=== PATIENT | male | born 1950 | race Caucasian/White ===

== ENCOUNTER → 2017-08-11 | Outpatient (CLI) | payer MEDICARE ==
[~2017-08-11] MED LIST: ACET-1757 PO; ACET650S12 PR; ALLO100T30 PO; AMIO200T42 PO; AMIO400T5 PO; AMLO5TAB2 PO; ASPI-515 PO; ASPI325T17 PO; BISA-49 PO; BISA10SU54 PR; CARV3.122 PO; CARV6.2512 PO; DEXT4TAB PO; DEXT50DI3 IVPush; DOCU-131 PO; ENOX40SY4 SQ; ESZO3TAB28 PO; FURO-92 PO; FURO-93 IV; FURO-93 PO; GLUC1VIA IVPush; HYDR-3307 PO; HYDR12.58 PO; LISI-170 PO; LISI40TA PO; LORA10TA3 PO; MELA1TAB22 PO; MELA1TAB9 PO; OMEP-110 PO; OXYC-302 PO; PANT40TA3 PO; POTA20TA91 PO; PROC5TAB40 PO; RIVA20TA PO; SIMV40TA PO; TRAM50TA2 PO; VALE450C PO; statin PO
== END | disposition home or self-care (01) ==
LOC: CFH 15:46
PROVIDERS: ATTEND Nurse Practitioner Family
DX: M19.071 Primary osteoarthritis, right ankle and foot (principal)

== ENCOUNTER 2017-10-11 14:00 | Emergency (ER) | payer MEDICARE ==
[~2017-10-11] VITALS: Ht 177.8 cm; Wt 82.0 kg
[2017-10-11 15:13] VITALS: BP 127/64
[2017-10-11 15:23] LABS: BASOPHILS # (AUTO) 0.03 x10^3/uL (0-0.1); BASOPHILS % (AUTO) 0 % (0-1); EOSINOPHILS % (AUTO) 1 % (1-7); LYMPHOCYTES # (AUTO) 1.07 x10^3/uL (1-3.4); LYMPHOCYTES % (AUTO) 15 % (22-44); MD NO; MEAN CORPUSCULAR HEMOGLOBIN 30.1 pg (27.5-34.5); MEAN CORPUSCULAR HGB CONC 33.4 g/dL (33.2-36.2); MEAN CORPUSCULAR VOLUME 89.9 fL (81-97); MEAN PLATELET VOLUME 8.3 fL (7.4-10.4); MONOCYTES # (AUTO) 0.74 x10^3/uL (0.2-0.8); MONOCYTES % (AUTO) 10 % (2-9); NEUTROPHILS # (AUTO) 5.46 x10^3/uL (1.8-6.8); NEUTROPHILS % (AUTO) 74 % (42-75); PLATELET COUNT 159 x10^3/uL (130-400); RED BLOOD COUNT 4.27 x10^6/uL (4.38-5.82); RED CELL DISTRIBUTION WIDTH 16.4 % (9.4-14.8)
== END 2017-10-11 17:40 | disposition home or self-care (01) ==
LOC: ED 16:18
DX: M25.561 Pain in right knee (principal); I25.10 Atherosclerotic heart disease of native coronary artery without angina pectoris; M10.9 Gout, unspecified
CPT/HCPCS: 36415; 84550; 85025; 99285

== ENCOUNTER → 2017-12-16 | Outpatient (CLI) | payer MEDICARE | END | disposition home or self-care (01) | LOC: CVU 10:59 | PROVIDERS: ATTEND Internal Medicine Cardiovascular Disease | DX: I08.1 Rheumatic disorders of both mitral and tricuspid valves (principal) | CPT/HCPCS: 93306 ==

== ENCOUNTER 2021-01-08 07:25 | Day surgery (SDC) | payer MEDICARE ==
[~2021-01-08] VITALS: Ht 177.8 cm; Wt 81.7 kg
[~2021-01-08 07:25] MED LIST changes: -ACET-1757 PO; +ACET-2065 PO; +AMLO-150 PO; -AMLO5TAB2 PO; -ASPI-515 PO; +ASPI-963 PO; -DEXT4TAB PO; +DEXT4TAB31 PO; +GENTAMICIN 80 MG/2 ML ONE; -GLUC1VIA IVPush; +GLUC1VIA5 IVPush; +HYDR-3248 PO; -HYDR-3307 PO; -HYDR12.58 PO; +HYDROCHLOROTH12.5 MG PO; -LISI40TA PO; +LISI40TA9 PO; +LORA-247 PO; -LORA10TA3 PO; -OXYC-302 PO; +OXYC1TAB14 PO; +VANCOMYCIN 500 MG ONE
[2021-01-08] MEDS ORDERED: ZOLP10TA PO (08:08)
[2021-01-08] MEDS ORDERED: ATOR40TA PO (08:08)
[2021-01-08 08:13] VITALS: BP 99/56
[2021-01-08] MEDS ORDERED: FENTANYL PF 100 MCG/2ML ONE (08:18)
[2021-01-08] MEDS ORDERED: TAMS-11 PO (08:26)
[2021-01-08] MEDS ORDERED: GABA600T7 PO (08:27)
[2021-01-08] MEDS ORDERED: FENTANYL PF 100 MCG/2ML IV PRN (08:30)
[2021-01-08] MEDS ORDERED: LACTATED RINGERS 1,000 ML IV SCH (08:30)
[2021-01-08] MEDS ORDERED: ACETAMINOPHEN 325 MG TABLET PO PRN (08:30)
[2021-01-08] MEDS ORDERED: OXYcodone 5 MG/5 ML ORAL.SOL UDC PO PRN (08:30)
[2021-01-08] MEDS ORDERED: ALBUTEROL SULFATE 2.5 MG/3 ML NPPB PRN (08:30)
[2021-01-08] MEDS ORDERED: MIDAZOLAM 1 MG/ML, 2ML IV PRN (08:30)
[2021-01-08] MEDS ORDERED: PROMETHAZINE 25 MG/ML, 1ML IVPush PRN (08:30)
[2021-01-08] MEDS ORDERED: CHLORHEXIDINE 15 ML UDC PO ONE (08:30)
[2021-01-08] MEDS ORDERED: hydrALAzine 20 MG/ML, 1ML IV PRN (08:30)
[2021-01-08] MEDS ORDERED: CEFAZOLIN 1,000 MG ONE ×2 (09:16→10:21)
[2021-01-08] MEDS ORDERED: PROPOFOL 10 MG/ML, 20ML ONE (10:21)
[2021-01-08] MEDS ORDERED: LIDOCAINE-MPF 2% ,5ML ONE (10:21)
[2021-01-08] MEDS ORDERED: ONDANSETRON 2MG/ML, 2ML ONE (10:21)
[2021-01-08] MEDS ORDERED: DEXAMETHASONE 4 MG/ML, 1ML ONE (10:21)
[2021-01-08] MEDS ORDERED: EPHEDRINE 50 MG/ML, 1ML ONE (10:21)
[2021-01-08] MEDS ORDERED: OXYcodone 5 MG/5 ML ORAL.SOL UDC ONE (10:56)
[2021-01-08] MEDS ORDERED: ACETAMINOPHEN 650 MG/20.3 ML UDC ONE (10:56)
== END 2021-01-08 12:15 | disposition home or self-care (01) ==
LOC: OUT 07:25 → MERGE 09:30 → OUT 12:15
PROVIDERS: ATTEND Orthopaedic Surgery
DX: S80.02XA Contusion of left knee, initial encounter (principal); I96 Gangrene, not elsewhere classified; I10 Essential (primary) hypertension; E78.5 Hyperlipidemia, unspecified; Z79.01 Long term (current) use of anticoagulants; Z79.899 Other long term (current) drug therapy; Z87.891 Personal history of nicotine dependence; W18.39XA Other fall on same level, initial encounter; Y93.89 Activity, other specified; Y92.89 Other specified places as the place of occurrence of the external cause; Y99.8 Other external cause status
CPT/HCPCS: 10140; 15271; 93005; C9363; J0690; J1100; J1580; J2405; J2704; J3010; J3370; J7120